=== PATIENT | female | born 1995 | race Caucasian/White ===

== ENCOUNTER 2020-07-22 23:02 | Emergency (ER) | payer OTHER, MEDICAID ==
[~2020-07-22] VITALS: Ht 165.1 cm; Wt 62.6 kg
[2020-07-22 23:11] VITALS: Ht 165.1 cm; Wt 62.6 kg
[2020-07-23 00:37] LABS: BASOPHIL % 0.3 % (0-2); PLATELET COUNT 309 x10^3mcL (130-400); RED CELL DISTRIBUTION WIDTH 13.3 % (11.5-14.5)
[2020-07-23 00:40] LABS: CALCIUM 8.6 mg/dL (8.5-10.1); CARBON DIOXIDE 24.3 mmol/L (21-32); CHLORIDE SERUM 105 mmol/L (98-107); CREATININE SERUM 0.7 mg/dL (0.6-1.0); GFR1 > 60 mL/min; GLUCOSE SERUM 107 mg/dL (74-106); POTASSIUM SERUM 3.2 mmol/L (3.5-5.1); SODIUM SERUM 142 mmol/L (136-145)
[2020-07-23 00:44] LABS: ALBUMIN 4.5 g/dL (3.4-5.0); ALKALINE PHOSPHATASE 61 U/L (46-116); ALT/SGPT 63 U/L (14-59); AST/SGOT 84 U/L (15-37); BILIRUBIN TOTAL 0.3 mg/dL (0.20-1.00)
[2020-07-23 00:46] LABS: TOTAL PROTEIN, SERUM 8.8 g/dL (6.4-8.2)
[2020-07-23 04:24] LABS: AMPHETAMINE QUAL UR NONE DETECTED (See below)
[2020-07-23 05:44] VITALS: BP 168/103
== END 2020-07-23 05:45 | disposition short-term general hospital (02) ==
LOC: ED 23:02
PROVIDERS: Specialist
DX: S52.502A Unspecified fracture of the lower end of left radius, initial encounter for closed fracture (principal); S52.602A Unspecified fracture of lower end of left ulna, initial encounter for closed fracture; S93.401A Sprain of unspecified ligament of right ankle, initial encounter; S16.1XXA Strain of muscle, fascia and tendon at neck level, initial encounter; F10.129 Alcohol abuse with intoxication, unspecified; V49.9XXA Car occupant (driver) (passenger) injured in unspecified traffic accident, initial encounter; Y93.89 Activity, other specified; Y92.89 Other specified places as the place of occurrence of the external cause; Y99.8 Other external cause status
CPT/HCPCS: G0480; J2270; J2405; J3010; J7030; Q0092